=== PATIENT | male | born 2000 | race Caucasian/White ===

== ENCOUNTER 2019-09-17 15:34 | Emergency (ER) | payer MEDICAID ==
[~2019-09-17] VITALS: Ht 165.1 cm; Wt 104.3 kg
[2019-09-17 15:37] VITALS: BP 126/78
[2019-09-17] MEDS ORDERED: ACETAMINOPHEN EXTRA STRENGTH 500 MG TAB PO ONE (16:05)
[2019-09-17] MEDS ORDERED: KETOROLAC 30 MG/ML VIAL IM ONE (16:05)
[2019-09-17 17:35] VITALS: BP 122/72
== END 2019-09-17 17:35 | disposition home or self-care (01) ==
LOC: MED 15:34
DX: S63.601A Unspecified sprain of right thumb, initial encounter (principal); S29.012A Strain of muscle and tendon of back wall of thorax, initial encounter; S30.1XXA Contusion of abdominal wall, initial encounter; V89.2XXA Person injured in unspecified motor-vehicle accident, traffic, initial encounter; Y93.89 Activity, other specified; Y92.89 Other specified places as the place of occurrence of the external cause; Y99.8 Other external cause status
CPT/HCPCS: 29125; 72072; 73140; 96372; 99284; J1885